=== PATIENT | male | born 2000 | race Caucasian/White ===

== ENCOUNTER 2018-09-05 16:42 | Emergency (ER) | payer OTHER ==
[~2018-09-05] VITALS: Ht 170.2 cm; Wt 81.7 kg
[2018-09-05] MEDS ORDERED: ZOFRAN ODT4 MG PO (18:52)
[2018-09-05] MEDS ORDERED: ZPAK PO (18:52)
[2018-09-05] MEDS ORDERED: IBUPROFEN 600600 M1 PO (18:52)
[2018-09-05] MEDS ORDERED: PROMETH-CODEIN 65 ML PO (18:52)
[2018-09-05 19:03] VITALS: BP 110/86
== END 2018-09-05 19:03 | disposition home or self-care (01) ==
LOC: ER 16:42
DX: J18.9 Pneumonia, unspecified organism (principal); R11.2 Nausea with vomiting, unspecified; J45.909 Unspecified asthma, uncomplicated